=== PATIENT | male | born 1970 | race Hispanic/Latino ===

== ENCOUNTER 2025-03-31 06:02 | Day surgery (SDC) | payer BC ==
[2025-03-31] VITALS (10 sets, daily range): BP systolic 105–121; BP diastolic 60–66; PULSE 55–61; RESP 14–18; TEMP 97.3–98.4
[~2025-03-31] VITALS: Ht 180.3 cm; Wt 111.1 kg
[2025-03-31] MEDS ORDERED: CHOL200013 PO (06:49)
[2025-03-31] MEDS: 0.9%NACL 1000ML 1,000 ML IV ONE (06:49)
[2025-03-31] MEDS ORDERED: SPIR25TA6 PO (06:49)
[2025-03-31] MEDS ORDERED: RIFA550T PO (06:49)
[2025-03-31] MEDS ORDERED: OMEP40CA21 PO (06:49)
[2025-03-31] MEDS ORDERED: PANT40TA54 PO (06:49)
[2025-03-31] MEDS ORDERED: LIDOCAINE HCL 1% 20 ML VIAL ONE (07:49)
--- NOTE | 2025-03-31 08:58 | NUR ---
Full and complete discharge instructions given to Patient and Family. All questions answered. PIV removed with catheter tip intact. Patient tolerating liquids and voided before discharge. W/C to POV with Family to Home.
== END 2025-03-31 08:58 | disposition home or self-care (01) ==
LOC: DAH 06:02 → ENDO 06:02
PROVIDERS: ATTEND Internal Medicine Gastroenterology
DX: K74.69 Other cirrhosis of liver (principal); I85.10 Secondary esophageal varices without bleeding; K76.6 Portal hypertension; K31.89 Other diseases of stomach and duodenum; K21.9 Gastro-esophageal reflux disease without esophagitis; K29.70 Gastritis, unspecified, without bleeding; J90 Pleural effusion, not elsewhere classified; R06.02 Shortness of breath; Z80.0 Family history of malignant neoplasm of digestive organs; Z79.899 Other long term (current) drug therapy
CPT/HCPCS: 43244; J7030 ×2; J2704; A4620; A4215; A4657; A7002; J3490